=== PATIENT | female | born 1975 | race African-American/Black ===

== ENCOUNTER 2018-03-05 11:50 | Inpatient (IN) | payer SELFPAY ==
[~2018-03-05] VITALS: Ht 165.1 cm; Wt 111.6 kg
[2018-03-05] MEDS ORDERED: LISINOPRIL 20MG TABLET PO ONE (12:15)
[2018-03-05 12:50] LABS: CHLORIDE 107 mEq/L (98-107)
[2018-03-05] MEDS ORDERED: CLONIDINE 0.1MG TABLET PO ONE (15:15)
[2018-03-05] MEDS ORDERED: MORPHINE SULFATE 4 MG/ML CPJ (NOT FOR IM USE) IV STA (15:56)
[2018-03-05] MEDS ORDERED: ONDANSETRON HCL 4MG/2ML INJ IV STA (15:56)
[2018-03-05] MEDS ORDERED: ASPIRIN 81MG TABLET PO ONE (16:00)
[2018-03-05] MEDS ORDERED: NITROGLYCERIN OINT 1GM/INCH UDPKT TD ONE (16:00)
[2018-03-05] MEDS: NITROGLYCERIN 0.4MG TABLET SL SL PRN ×3 (16:44→17:16)
[2018-03-05 16:54] LABS: EOSINOPHILS % 1.3 % (0.0-5.0); HEMATOCRIT. 43.2 % (36.0-48.0); HEMOGLOBIN. 14.3 g/dL (12.0-16.0); LYMPHOCYTES % 60.8 % (20.0-50.0); MEAN CORPUSCULAR HEMOGLOBIN 30.4 pg (28.0-32.0); MEAN CORPUSCULAR VOLUME 92.1 fL (81.0-99.0); MEAN PLATELET VOLUME 9.5 fl (7.4-10.4); MONOCYTES % 5.8 % (2.0-8.0); NEUTROPHILS % 31.1 % (40.0-76.0); PLATELET 247 x1000/uL (130-400); RED BLOOD CELL COUNT 4.69 mill/uL (4.2-5.4); RED CELL DISTRIBUTION WIDTH 14.5 % (11.6-14.6)
[2018-03-05 16:59] LABS: CHLORIDE 106 mEq/L (98-107)
[2018-03-05 17:05] LABS: INR 0.9; PARTIAL THROMBOPLASTIN TIME 30.3 sec (23.4-31.0); PROTHROMBIN TIME 9.4 sec (9.1-11.1)
[2018-03-05 17:09] LABS: HCG SCREEN NEGATIVE
[2018-03-05 18:04] LABS: *AMPHETAMINES SCREEN URINE NEGATIVE (NEGATIVE); *BARBITURATES SCREEN URINE NEGATIVE (NEGATIVE); CANNABINOID URINE SCREEN NEGATIVE (NEGATIVE); METHADONE URINE SCREEN NEGATIVE (NEGATIVE); OPIATES URINE SCREEN NEGATIVE (NEGATIVE); PHENCYCLIDINE URINE SCREEN NEGATIVE (NEGATIVE)
[2018-03-05 18:05] LABS: *BENZODIAZEPINES SCREEN URINE NEGATIVE (NEGATIVE); *COCAINE SCREEN URINE NEGATIVE (NEGATIVE)
[2018-03-05] MEDS ORDERED: GUAIFENESIN 200MG/10ML SUGAR FREE UDC PO PRN (18:15)
[2018-03-05] MEDS ORDERED: ACETAMINOPHEN 325MG TABLET PO PRN (18:15)
[2018-03-05] MEDS ORDERED: KETOROLAC 15MG/ML VIAL IV PRN (18:15)
[2018-03-05] MEDS ORDERED: LORAZEPAM 0.5MG TABLET PO PRN (18:15)
[2018-03-05] MEDS ORDERED: NA PHOS,M-B/NA PHOS,DI-BA ENEMA 118ML PR PRN (18:15)
[2018-03-05] MEDS ORDERED: IPRATROPIUM/ALBUTEROL 0.5-3(2.5)MG/3ML NEB INH PRN (18:15)
[2018-03-05] MEDS ORDERED: ONDANSETRON HCL 4MG/2ML INJ IV PRN (18:15)
[2018-03-05] MEDS ORDERED: NITROGLYCERIN 0.4MG TABLET SL SL PRN (18:15)
[2018-03-05] MEDS ORDERED: CLONIDINE 0.1MG TABLET PO PRN (18:15)
[2018-03-05] MEDS ORDERED: MAGNESIUM/ALUMINUM HYDROXIDE/SIMETHICONE 30ML UDC PO PRN (18:15)
[2018-03-05] MEDS ORDERED: DOCUSATE SODIUM 100MG CAPSULE PO PRN (18:15)
[2018-03-05 21:15] VITALS: BP 151/77
[2018-03-05] MEDS: METOPROLOL TARTRATE 25MG TABLET PO SCH (21:18)
[2018-03-05] MEDS ORDERED: ZOLPIDEM TARTRATE 5MG TABLET PO PRN (21:30)
[2018-03-05 21:45] VITALS: BP 151/77
[2018-03-05] MEDS: AMLODIPINE 10MG TABLET PO SCH (21:49)
[2018-03-05] MEDS: FAMOTIDINE 20MG TABLET PO SCH (21:50)
[2018-03-05] MEDS: LISINOPRIL 20MG TABLET PO SCH (21:50)
[2018-03-05] MEDS: HYDRALAZINE HCL 50MG TABLET PO SCH (22:00)
[2018-03-06] VITALS: BP 111/56
[2018-03-06 04:31] VITALS: BP 100/49
[2018-03-06] MEDS: HYDRALAZINE HCL 50MG TABLET PO SCH ×2 (05:53→13:47)
[2018-03-06 08:00] VITALS: BP 135/80
[2018-03-06] MEDS: LISINOPRIL 20MG TABLET PO SCH (08:20)
[2018-03-06] MEDS: METOPROLOL TARTRATE 25MG TABLET PO SCH (08:20)
[2018-03-06] MEDS: FAMOTIDINE 20MG TABLET PO SCH (08:20)
[2018-03-06] MEDS: AMLODIPINE 10MG TABLET PO SCH (08:20)
[2018-03-06] MEDS ORDERED: ENOXAPARIN 40MG/0.4ML SYR SUBCUT SCH (09:00)
[2018-03-06] MEDS ORDERED: ENOXAPARIN 30MG/0.3ML SYR SUBCUT SCH (09:00)
[2018-03-06 12:00] VITALS: BP 143/82
[2018-03-06 13:14] VITALS: BP 143/82
== END 2018-03-06 14:11 | disposition home or self-care (01) | DRG 199 ==
LOC: ER 11:50 → EDBEDREQ 17:02 → EDBEDREQTM 17:02 → ENRESERV 19:58 → 7WST 21:15
PROVIDERS: ADMIT Internal Medicine; ATTEND Internal Medicine
DX: I10 Essential (primary) hypertension (principal); E66.01 Morbid (severe) obesity due to excess calories; H53.8 Other visual disturbances; R07.89 Other chest pain; F17.210 Nicotine dependence, cigarettes, uncomplicated; Z79.82 Long term (current) use of aspirin; Z85.41 Personal history of malignant neoplasm of cervix uteri; Z90.710 Acquired absence of both cervix and uterus; Z91.14 Patient's other noncompliance with medication regimen; Z68.41 Body mass index [BMI] 40.0-44.9, adult
CPT/HCPCS: 36415; 70450; 71045; 80048; 80053; 80061; 80305; 83036; 83880; 84484; 84703; 85025; 85610; 85730; 93005; 93970; J1650; J1885; J2270; J2405